=== PATIENT | male | born 1985 | race African-American/Black ===

== ENCOUNTER 2023-06-05 14:03 | Observation (INO) ==
[2023-06-05] MEDS ORDERED: OPTIRAY 320 125ml IV ONE ×2 (14:17→17:06)
--- NOTE | 2023-06-05 14:31 | CT Scan Report ---
CT SCAN OF THE BRAIN WITHOUT IV CONTRAST CLINICAL HISTORY: Neurologic deficit. Stroke like symptoms. COMPARISON STUDY: No priors. TECHNIQUE: Unenhanced axial CT scan of the brain is performed from the vertex to the skull base. A d ose lowering technique was utilized adhering to the principles of ALARA. FINDINGS: Brain parenchyma: The brain parenchyma is normal in appearance. There is no hemorrhage, mass effect, or evidence of acute territorial ischemia by CT criteria. Damon-white matter differentiation is preser colby. No extra-axial fluid collection is seen. Ventricles, sulci, cisterns: Normal in configuration. Intracranial vasculature: The visualized intracranial vasculature at the skull base is normal in appe arance. Calvarium: Unremarkable. Sinuses and mastoids: There is opacification of a left anterior ethmoid sinus. The remaining visualiz ed paranasal sinuses are clear. The mastoid air cells are well pneumatized. Orbits: The bony orbits are grossly intact. IMPRESSION: There is no hemorrhage, mass effect, or evidence of acute territorial ischemia by CT ezekiel roach. ACT 112: Negative or not required by law. Electronically signed by: Jomar Luis M.D. 06/05/2023 2:30 PM
--- NOTE | 2023-06-05 14:34 | Emergency Department Note ---
Impression & Plan Stroke-like symptom, Acute left-sided weakness ED Provider Note NAME: SHEILA [id number] ALEKS AGE: 38 SEX: M : 1985 ARRIVES VIA: Ambulance INFORMANT: Patient, prehospital personnel ED PROVIDER(S): Rubén Foster DO CHIEF COMPLAINT: Strokelike symptoms HPI: The patient is a 38-year-old male who presented to the emergency department for an evaluation of strokelike symptoms. The patient's history was somewhat confusing. It sounds though the patient was found in his cell approximately 1230. He was not awake. He was given Narcan with no response but when the patient did awaken he was having difficulty moving his left arm. He was also having difficulty moving his left leg. He has no previous history similar to this. The patient denies having any headache or chest pain. He denies having any drug use. The patient was made a stroke alert upon arrival to the emergency department. He was not made a stroke alert by the prehospital personnel. ROS: See above HPI for pertinent positives & negatives. A total of 10 systems reviewed and were otherwise negative. PAST MEDICAL HISTORY: See Below PAST SURGICAL HISTORY: See Below FAMILY HISTORY: See Below SOCIAL HISTORY: See Below HOME MEDICATIONS: See Below ALLERGIES: See Below VITALS: See Below PHYSICAL EXAMINATION: GENERAL: The patient is awake and alert. He is somewhat guarded. EYES: The conjunctivae are clear. The pupils are round and reactive. EARS, NOSE, MOUTH AND THROAT: The nose is without any evidence of any deformity. NECK: The neck is nontender and supple. RESPIRATORY: Normal respiratory effort is noted there is no evidence of wheezing rhonchi or rales CARDIOVASCULAR: Regular rate and rhythm noted there no murmurs rubs or gallops normal S1 normal S2. GASTROINTESTINAL: The abdomen is soft. Abdomen is nontender. MUSCULOSKELETAL/EXTREMITIES: There is no evidence of gross deformity full range of motion is noted in the hips and shoulders. SKIN: There is no obvious evidence of any rash. There are no petechiae, pallor or cyanosis noted. NEUROLOGIC: Patient is awake alert and oriented x3. Speech was clear. There is no facial droop. Diminished inside account representative strength is noted in the left upper extremity. The patient is able to hold each leg off the bed but there is asymmetry in the left leg is weaker. MEDICAL DECISION MAKING: The patient is a 38-year-old male who presented to the emergency department from the snf for an evaluation of strokelike symptoms. The patient was found to have left-sided weakness after he was found in his cell. The patient initially was not able to wake up. He was given Narcan because they thought he may have been an overdose. Ultimately the patient was brought to the emergency department. He was not made a stroke alert prior to arrival which did lead to some delay in the patient's overall workup. When the patient was taken to CT he refused CT angiography. This constituted another delay. The patient was evaluated by the telestroke neurologist. After their evaluation they do not feel the patient would be a candidate for TNK given his overall history as well as some ambiguity with the last known well time. I do agree with this assessment. The patient was not sure if he would want TNK as well. I discussed patient's laboratory and radiographic studies with him. I did recommend that he consider inpatient evaluation for further workup which could include MRI of the brain as well as angiography. The patient was agreeable to evaluation. I discussed his condition with the [facility] hospitalist group. Triage Nursing notes reviewed. Prior medical records reviewed Vital Signs: reviewed and remarkable for no significant abnormalities Differential diagnosis: Infection, dehydration, metabolic abnormality, hypo/hyperglycemia, electrolyte disturbance, anemia, hypoxia, cardiac sources, intracerebral event, toxicologic, neurologic, as well as other pathologies. ER treatment provided: See below Diagnostics interpreted by me: ECG: EKG was obtained in the emergency department. My interpretation is normal sinus rhythm at 63 bpm. There is no ectopy. There is no acute ST segment abnormalities noted. No previous tracing was available. Cardiac Monitoring: An order was placed for continuous cardiac monitoring. The monitor shows a rate of 67 bpm with sinus rhythm. Laboratory studies: As stated above and show below. Imaging studies: See below. Radiographic imaging was reviewed by myself Consultation(s): Dr. Gonzalez was notified about the patient. ED COURSE: Procedures: none Critical Care: I have personally spent greater than 35 minutes of critical care time in the direct management of this patient. This includes bedside care, interpretation of diagnostic studies, and testing, discussion with consultants, patient, and family members, and other required patient management activities. This 35 minutes is in excess of all separately billable procedures. Allergies Allergies Allergy/AdvReac Type Severity Reaction Status Date / Time No Known Allergies Allergy Unverified 06/05/23 15:09 Home Meds Home Medications Medication Instructions Recorded Confirmed hydrocortisone 1 % lotion 1 applic topical DAILY 06/05/23 06/05/23 Results & Data (ED) Vital Signs Vital Signs - 24 hr 06/05/23 14:27 06/05/23 14:37 Temperature 36.7 C Temperature Source Oral Pulse Rate 66 67 Pulse Rhythm Regular Respiratory Rate 17 Respiratory Depth Normal Blood Pressure 112/69 Blood Pressure Mean 83 Pulse Oximetry 94 Oxygen Delivery Method Room Air Sepsis Recent Fever Within 48 Hours No Sepsis New/Unexplained Change in Mental Status Yes Sepsis Action Taken by Nursing No Action Required Home Medications Current Medication List: was personally reviewed by me Laboratory Data Attestation: I reviewed the patient's lab results. 06/05/23 15:05 06/05/23 15:05 Lab Results 06/05/23 06/05/23 06/05/23 Range/Units 15:04 15:05 15:11 WBC 3.90 L (4.8-10.8) K/ul RBC 4.65 L (4.70-6.10) M/uL Hgb 13.5 L (14.0-18.0) g/dl POC Hgb 14.3 (14.0-18.0) g/dl Hct 41.8 L (42.0-52.0) % POC Hct 42 (42-52) % MCV 89.9 (80.0-100.0) fL MCH 29.0 (25.0-34.0) pg MCHC 32.3 (32.0-36.0) g/dL RDW Std Deviation 43.8 (36.4-46.3) fL RDW Coeff of Asher 13.3 (11.5-14.5) % Plt Count 255 (130-400) K/uL MPV 9.1 L (9.4-12.4) fL Immature Gran % (Auto) 0.3 % Neut % (Auto) 47.6 % Lymph % (Auto) 45.9 % Barrow % (Auto) 5.4 % Eos % (Auto) 0.5 % Baso % (Auto) 0.3 % Neut # (Auto) 1.86 (1.40-6.50) K/uL Lymph # (Auto) 1.79 (1.20-3.40) K/uL Barrow # (Auto) 0.21 (0.11-0.59) K/uL Eos # (Auto) 0.02 (0.00-0.50) K/uL Baso # (Auto) 0.01 (0.00-0.20) K/uL Immature Gran # (Auto) 0.01 (0.01-0.20) K/uL POC Sodium 142 (135-144) mmol/L POC Potassium 4.2 (3.3-5.0) mmol/L POC Chloride 103 (101-112) mmol/L POC Total CO2 26 (24-31) mmol/L POC Anion Gap 18.0 (16-25) mmol/L POC BUN 4 L (7-18) mg/dl POC Creatinine 1.4 H (0.6-1.3) mg/dl POC Glucose 86 (70-99) mg/dl POC Glucose (other) 92 (70-99) mg/dl POC Ioniz Calcium Andrew 1.17 (1.12-1.32) mmol/l Administered Medications Discontinued Medications Ioversol (Optiray 320 125ml) 115 ml IV ONCE ONE Stop: 06/05/23 14:18 Last Admin: 06/05/23 14:17 Dose: 115 ml Documented By: ARSH Imaging Data Attestation: I personally reviewed and interpreted this imaging study as follows: My Impression: 1 view chest x-ray was obtained in the emergency department. My interpretation is no free air or definite infiltrate, final report below. CT of the brain was obtained in the emergency department. My interpretation is no intracranial hemorrhage or mass effect, final report below Radiologist's Impression: Chest X-Ray 06/05/23 14:11 XR chest 1V portable CLINICAL HISTORY: neuro deficit, acute stroke suspected COMPARISON STUDY: No previous studies for comparison. FINDINGS: Lung volumes are normal. Lungs are clear. There is no pneumothorax or pleural effusion. Cardiac size is normal. Mediastinal contours are normal. There is no evidence for pulmonary edema. IMPRESSION: No acute cardiopulmonary findings. ACT 112: Negative or not required by law. Electronically signed by: Colin Tejada M.D. 06/05/2023 3:[address] 06/05/23 14:11 CT SCAN OF THE BRAIN WITHOUT IV CONTRAST CLINICAL HISTORY: Neurologic deficit. Stroke like symptoms. COMPARISON STUDY: No priors. TECHNIQUE: Unenhanced axial CT scan of the brain is performed from the vertex to the skull base. A dose lowering technique was utilized adhering to the principles of ALARA. FINDINGS: Brain parenchyma: The brain parenchyma is normal in appearance. There is no hemorrhage, mass effect, or evidence of acute territorial ischemia by CT criteria. Damon-white matter differentiation is preserved. No extra-axial fluid collection is seen. Ventricles, sulci, cisterns: Normal in configuration. Intracranial vasculature: The visualized intracranial vasculature at the skull base is normal in appearance. Calvarium: Unremarkable. Sinuses and mastoids: There is opacification of a left anterior ethmoid sinus. The remaining visualized paranasal sinuses are clear. The mastoid air cells are well pneumatized. Orbits: The bony orbits are grossly intact. IMPRESSION: There is no hemorrhage, mass effect, or evidence of acute territorial ischemia by CT criteria. ACT 112: Negative or not required by law. Electronically signed by: Jomar Luis M.D. 06/05/2023 2:30 PM Discharge Plan Visit Data Chief Complaint: Stroke/CVA Symptoms Stated Complaint: STROKE SX, AMS ED Provider: Rubén Foster Discharge Problem: Stroke-like symptom, Acute left-sided weakness Patient Disposition: Being Evaluated by Hospitalist Forms Stand Alone Forms: My [employer] Prescriptions Prescriptions: No Action hydrocortisone 1 % Lotion 1 applic TOPICAL DAILY Referrals Referrals: Wili FINCH [Primary Care Provider] -
--- NOTE | 2023-06-05 14:51 | Electrocardiogram Report ---
Test Reason : Blood Pressure : / mmHG Vent. Rate : 063 BPM Atrial Rate : 063 BPM P-R Int : 164 ms QRS Dur : 078 ms QT Int : 384 ms P-R-T Axes : -03 001 018 degrees QTc Int : 392 ms Normal sinus rhythm Early repolarization Borderline ECG No previous ECGs available Confirmed by Torin Khan ([id number]) on 06/05/2023 2:51:19 PM Referred By: Confirmed By:Torin Khan
--- NOTE | 2023-06-05 15:02 | XRay Report ---
XR chest 1V portable CLINICAL HISTORY: neuro deficit, acute stroke suspected COMPARISON STUDY: No previous studies for comparison. FINDINGS: Lung volumes are normal. Lungs are clear. There is no pneumothorax or pleural effusion. Car diac size is normal. Mediastinal contours are normal. There is no evidence for pulmonary edema. IMPRESSION: No acute cardiopulmonary findings. ACT 112: Negative or not required by law. Electronically signed by: Colin Tejada M.D. 06/05/2023 3:01 PM
[2023-06-05 15:23] LABS: iSTAT Creatinine 1.4 mg/dl (0.6-1.3); iSTAT Hemoglobin 14.3 g/dl (14.0-18.0); iSTAT Ionized Calcium 1.17 mmol/l (1.12-1.32); iSTAT Potassium 4.2 mmol/L (3.3-5.0)
[2023-06-05 15:34] LABS: Basophils # (auto) 0.01 K/uL (0.00-0.20); Basophils % (auto) 0.3 %; Eosinophils # (auto) 0.02 K/uL (0.00-0.50); Eosinophils % (auto) 0.5 %; Hematocrit (blood only) 41.8 % (42.0-52.0); Hemoglobin 13.5 g/dl (14.0-18.0); Immature Granulocytes # (auto) 0.01 K/uL (0.01-0.20); Immature Granulocytes % (auto) 0.3 %; Lymphocytes # (auto) 1.79 K/uL (1.20-3.40); Lymphocytes % (auto) 45.9 %; Mean Corpuscular Hgb Conc 32.3 g/dL (32.0-36.0); Mean Corpuscular Volume 89.9 fL (80.0-100.0); Mean Platelet Volume 9.1 fL (9.4-12.4); Monocytes # (auto) 0.21 K/uL (0.11-0.59); Monocytes % (auto) 5.4 %; Neutrophils # (auto) 1.86 K/uL (1.40-6.50); Neutrophils % (auto) 47.6 %; Platelet Count 255 K/uL (130-400); RDW Coefficient of Variation 13.3 % (11.5-14.5); RDW Standard Deviation 43.8 fL (36.4-46.3); Red Blood Count 4.65 M/uL (4.70-6.10)
[2023-06-05 15:54] LABS: Albumin Globulin Ratio 1.6 (0.9-2); Albumin Level 4.9 gm/dl (3.4-5.0); Bilirubin,Total 0.3 mg/dl (0.2-1.0); Calcium 9.5 mg/dl (8.6-10.3); Creatinine Clr Calc Pharmacy 123.8 ml/min; Est GFR (African American) 111.7 ml/min; Est GFR (Non-African American) 96.4 ml/min; Globulin 3.1 gm/dl (2.5-4.0); Potassium 4.2 mmol/L (3.5-5.1)
[2023-06-05 16:01] LABS: Troponin I High Sensitivity 3.8 pg/ml (0-20)
[2023-06-05 16:07] LABS: Partial Thromboplastin Time 29 Seconds (21-31); Prothrombin Time 10.6 Seconds (9.0-12.0)
[2023-06-05] MEDS ORDERED: LIDO/EPINEPHRINE/SOD BICARB 50 ML VIAL INFIL ONE ×2 (16:22→16:49)
[2023-06-05] MEDS ORDERED: PHARMACIST DISCHARGE MED REC CONSULT PRN (17:37)
--- NOTE | 2023-06-05 17:44 | CT Scan Report ---
HEAD & NECK CTA HISTORY: neuro deficit, acute stroke suspected TECHNIQUE: Multiaxial CT images of the head were performed following the intravenous administration o f contrast to evaluate the major cerebral vessels. Multiaxial CT images of the neck were also perform ed following the intravenous administration of contrast to evaluate the major cervical vessels. 3D/PR P images were also obtained. Sagittal and coronal reformats were reviewed. A dose lowering technique was utilized adhering to the principles of ALARA. COMPARISON: None. FINDINGS: The calvarium and skull base are intact. Small retention cyst within the left anterior ethmoid air ce lls. The orbits are unremarkable. A noncontrast head CT was not performed for this examination. Howev er, there is no definite mass, hematoma, midline shift, acute infarct identified. The major vascular flow-voids at the skull base are well-maintained. The hypoplastic right vertebral artery terminates i nto the right posterior inferior cerebellar artery. This is considered to be a normal variant. Visual ized intracranial internal carotid arteries, distal vertebral arteries, and basilar artery are widely patent. There is no significant stenosis, occlusion, or aneurysm seen within the bilateral ACAs, MCA s, or comparator operator. The aortic arch and proximal great vessels are widely patent. There is no significant stenosis, occ lusion, or dissection identified within the bilateral common carotid, internal carotid, or vertebral arteries. Incidental note is made of a posterior fusion defect at C1. Hypoplastic right vertebral art bertrand again noted. IMPRESSION: 1. No significant stenosis, occlusion, or aneurysm within the [place]. 2. No significant stenosis, occlusion, or dissection identified within the carotid or vertebral arter ies. ACT 112: Negative or not required by law. Electronically signed by: Silvino Wagoner M.D. 06/05/2023 5:42 PM
--- NOTE | 2023-06-05 17:44 | CT Scan Report ---
HEAD & NECK CTA HISTORY: neuro deficit, acute stroke suspected TECHNIQUE: Multiaxial CT images of the head were performed following the intravenous administration o f contrast to evaluate the major cerebral vessels. Multiaxial CT images of the neck were also perform ed following the intravenous administration of contrast to evaluate the major cervical vessels. 3D/KY P images were also obtained. Sagittal and coronal reformats were reviewed. A dose lowering technique was utilized adhering to the principles of ALARA. COMPARISON: None. FINDINGS: The calvarium and skull base are intact. Small retention cyst within the left anterior ethmoid air ce lls. The orbits are unremarkable. A noncontrast head CT was not performed for this examination. Howev er, there is no definite mass, hematoma, midline shift, acute infarct identified. The major vascular flow-voids at the skull base are well-maintained. The hypoplastic right vertebral artery terminates i nto the right posterior inferior cerebellar artery. This is considered to be a normal variant. Visual ized intracranial internal carotid arteries, distal vertebral arteries, and basilar artery are widely patent. There is no significant stenosis, occlusion, or aneurysm seen within the bilateral ACAs, MCA s, or certified performance technologist. The aortic arch and proximal great vessels are widely patent. There is no significant stenosis, occ lusion, or dissection identified within the bilateral common carotid, internal carotid, or vertebral arteries. Incidental note is made of a posterior fusion defect at C1. Hypoplastic right vertebral art bertrand again noted. IMPRESSION: 1. No significant stenosis, occlusion, or aneurysm within the [place]. 2. No significant stenosis, occlusion, or dissection identified within the carotid or vertebral arter ies. ACT 112: Negative or not required by law. Electronically signed by: Silvino Wagoner M.D. 06/05/2023 5:42 PM
[2023-06-05] MEDS ORDERED: ASPIRIN 81 MG CHEW PO STA (19:19)
--- NOTE | 2023-06-05 20:04 | History & Physical Report ---
Date of Service June 05, 2023 Assessment & Plan (1) Stroke-like symptom: Plan: Stroke order set CT angio head/neck - discussed with patient and not willing to have this done MRI brain TTE with bubble study ASA 325mg PO given, ongoing management pending further workup as above Consult neurology (2) Acute left-sided weakness: Plan: Concerning for stroke as above No pain to suggest (3) Alcohol intoxication: Plan: Suspect cause of metabolic encephalopathy (4) Acute metabolic encephalopathy: Plan: Suspect due to alcohol intoxication, less likely stroke related No pneumonia on CXR, UA + drug screen pending Plan VTE Prophylaxis - low risk Diet - heart healthy Disposition - observation to med/tele Admission and Anticipated Discharge Date Admission Date: June 05, 2023 History of Present Illness Chief Complaint: Left upper extremity weakness Primary Care Provider: STEF Wili Vik Rogers is a 38 year old male from [facility] who presents to the ER after being found unresponsive. The patient is unable to give me any history, slow to answer questions and cannot tell me the last thing he remembers. Reportedly found in cell unresponsive. Left upper extremity > right sided weakness after he became more responsive therefore sent to the ER as a stroke alert. Alcohol found in cell. No prior stroke or heart attack known to [facility] - only medical condition is eczema. Allergies Allergy/AdvReac Type Severity Reaction Status Date / Time No Known Allergies Allergy Unverified 06/05/23 15:09 Home Medications Medication Instructions Recorded Confirmed Type hydrocortisone 1 % lotion 1 applic topical DAILY 06/05/23 06/05/23 History Past Med/Surg History Medical History Eczema Review of Systems Review of Systems: All systems reviewed & are unremarkable except as noted in HPI & below Physical Exam Constitutional: WD/WN, vitals as above Eyes: PERRL, conjunctivae normal, anicteric sclerae EOM intact bilaterally ENMT: external ear and nose normal, oropharynx normal Respiratory: normal respiratory effort, lungs clear to auscultation Cardiovascular: RRR, no murmur, no edema Gastrointestinal (Abdomen): normal bowel sounds, soft, nontender, no hepatosplenomegaly Skin: no rashes, warm and dry Neurologic: moves all extremities, + focal motor deficit (decreased left sided baler operator strength, biceps flex 3/5, hip flex 4/5), awake and + confused Speech / Cognition: + abnormal speech (slow); no expressive aphasia and no receptive aphasia Motor/Sensory: + pronator drift (left); no tremor Cranial Nerves: PERRL, EOM intact bilaterally, normal facial strength, tongue midline, able to rotate head bilaterally, able to elevate shoulders bilaterally, no nystagmus and symmetric palate elevation Coordination: + abnormal [id number] test (left sided UE weakness limiting coordination) Psychiatric: Orientation: alert, oriented to person and oriented to place; + not oriented to time Results & Data Results & Data Vital Signs (Past 12 Hours) Vital Signs Temp Pulse Resp BP Pulse Ox O2 Del Method 06/05/23 14:37 67 06/05/23 14:27 36.7 C 66 17 112/69 94 Room Air Laboratory Results Abnormal lab results 06/05/23 06/05/23 06/05/23 Range/Units 15:05 15:11 16:16 WBC 3.90 L (4.8-10.8) K/ul RBC 4.65 L (4.70-6.10) M/uL Hgb 13.5 L (14.0-18.0) g/dl Hct 41.8 L (42.0-52.0) % MPV 9.1 L (9.4-12.4) fL POC BUN 4 L (7-18) mg/dl POC Creatinine 1.4 H (0.6-1.3) mg/dl BUN/Creatinine Ratio 6.0 L (10-20) Ethyl Alcohol mg/dL 164.1 H (<10.0) mg/dl Diagnostic Findings XR chest 1V portable CLINICAL HISTORY: neuro deficit, acute stroke suspected COMPARISON STUDY: No previous studies for comparison. FINDINGS: Lung volumes are normal. Lungs are clear. There is no pneumothorax or pleural effusion. Cardiac size is normal. Mediastinal contours are normal. There is no evidence for pulmonary edema. IMPRESSION: No acute cardiopulmonary findings. CT SCAN OF THE BRAIN WITHOUT IV CONTRAST CLINICAL HISTORY: Neurologic deficit. Stroke like symptoms. COMPARISON STUDY: No priors. TECHNIQUE: Unenhanced axial CT scan of the brain is performed from the vertex to the skull base. A dose lowering technique was utilized adhering to the principles of ALARA. FINDINGS: Brain parenchyma: The brain parenchyma is normal in appearance. There is no hemorrhage, mass effect, or evidence of acute territorial ischemia by CT criteria. Damon-white matter differentiation is preserved. No extra-axial fluid collection is seen. Ventricles, sulci, cisterns: Normal in configuration. Intracranial vasculature: The visualized intracranial vasculature at the skull base is normal in appearance. Calvarium: Unremarkable. Sinuses and mastoids: There is opacification of a left anterior ethmoid sinus. The remaining visualized paranasal sinuses are clear. The mastoid air cells are well pneumatized. Orbits: The bony orbits are grossly intact. IMPRESSION: There is no hemorrhage, mass effect, or evidence of acute territorial ischemia by CT criteria. HEAD & NECK CTA HISTORY: neuro deficit, acute stroke suspected TECHNIQUE: Multiaxial CT images of the head were performed following the intravenous administration of contrast to evaluate the major cerebral vessels. Multiaxial CT images of the neck were also performed following the intravenous administration of contrast to evaluate the major cervical vessels. 3D/MIP images were also obtained. Sagittal and coronal reformats were reviewed. A dose lowering technique was utilized adhering to the principles of ALARA. COMPARISON: None. FINDINGS: The calvarium and skull base are intact. Small retention cyst within the left anterior ethmoid air cells. The orbits are unremarkable. A noncontrast head CT was not performed for this examination. However, there is no definite mass, hematoma, midline shift, acute infarct identified. The major vascular flow-voids at the skull base are well-maintained. The hypoplastic right vertebral artery terminates into the right posterior inferior cerebellar artery. This is considered to be a normal variant. Visualized intracranial internal carotid arteries, distal vertebral arteries, and basilar artery are widely patent. There is no significant stenosis, occlusion, or aneurysm seen within the bilateral ACAs, MCAs, or offal trimmer. The aortic arch and proximal great vessels are widely patent. There is no significant stenosis, occlusion, or dissection identified within the bilateral common carotid, internal carotid, or vertebral arteries. Incidental note is made of a posterior fusion defect at C1. Hypoplastic right vertebral artery again noted. IMPRESSION: 1. No significant stenosis, occlusion, or aneurysm within the [facility]. 2. No significant stenosis, occlusion, or dissection identified within the carotid or vertebral arteries. Medications Administered ER Medications Given: None ECG Rate (beats per minute): 63 Rhythm: normal sinus Findings: no acute ischemic change Comparison ECG Date: no prior available Code Status & VTE Plan Code Status Full VTE Prophylaxis Plan VTE Prophylaxis will be ordered: No PG Care Time/CCT Total # of Minutes Spent Total Time Spent with Patient: Total time spent is greater than 50% in coordination of care (as documented) at patient's floor/unit and/or counseling patient: Coding Level of Care Code 30312 INT INP/OBS CARE 3/75MIN Diagnoses Stroke-like symptom R29.90 Acute left-sided weakness R53.1 Alcohol intoxication F10.929 Acute metabolic encephalopathy G93.41
[2023-06-05 21:51] LABS: Appearance Urine Clear (Clear); Bilirubin Urine Negative (Negative); Blood Urine Negative (Negative); Color Urine Yellow; Glucose Urine UA Negative (Negative); Ketones Urine Negative (Negative); Leukocyte Esterase Urine Negative (Negative); Nitrite Urine Negative (Negative); Protein Urine Negative (Negative); Specific Gravity Urine 1.043 (1.000-1.030); Urobilinogen Urine Negative (Negative)
[2023-06-05 22:58] LABS: Amphetamines+Metham, Urine Neg (Neg); Barbiturates, Urine Neg (Neg); Benzodiazepine, Urine Neg (Neg); Cocaine, Urine Neg (Neg); MDMA (Ecstacy), Urine Neg (Neg); Marijuana, Urine Neg (Neg); Methadone, Urine Neg (Neg); Opiate, Urine Neg (Neg); Phencyclidine, Urine Neg (Neg)
[2023-06-06 05:15] LABS: Basophils # (auto) 0.02 K/uL (0.00-0.20); Basophils % (auto) 0.5 %; Eosinophils % (auto) 2.3 %; Hematocrit (blood only) 38.3 % (42.0-52.0); Hemoglobin 12.3 g/dl (14.0-18.0); Immature Granulocytes # (auto) 0.01 K/uL (0.01-0.20); Immature Granulocytes % (auto) 0.2 %; Lymphocytes # (auto) 2.07 K/uL (1.20-3.40); Lymphocytes % (auto) 46.7 %; Mean Corpuscular Hemoglobin 28.9 pg (25.0-34.0); Mean Corpuscular Hgb Conc 32.1 g/dL (32.0-36.0); Mean Corpuscular Volume 89.9 fL (80.0-100.0); Monocytes # (auto) 0.28 K/uL (0.11-0.59); Monocytes % (auto) 6.3 %; Neutrophils # (auto) 1.95 K/uL (1.40-6.50); Platelet Count 244 K/uL (130-400); RDW Coefficient of Variation 13.5 % (11.5-14.5); RDW Standard Deviation 44.5 fL (36.4-46.3); Red Blood Count 4.26 M/uL (4.70-6.10); White Blood Count 4.43 K/ul (4.8-10.8)
[2023-06-06 05:33] LABS: BUN Creatinine Ratio 9.6 (10-20); Chol HDL Ratio 2.1 (0-5); Creatinine Clr Calc Pharmacy 131.1 ml/min; Est GFR (African American) 120.4 ml/min; Est GFR (Non-African American) 103.9 ml/min; Potassium 3.8 mmol/L (3.5-5.1)
[2023-06-06] MEDS ORDERED: ACETAMINOPHEN 325 MG TAB PO PRN (06:20)
[2023-06-06 07:04] LABS: Estimated Average Glucose 123 mg/dl; Hemoglobin A1C 5.9 % (4.5-5.6)
--- NOTE | 2023-06-06 09:20 | Neurology Consultation ---
Date of Consultation June 06, 2023 Assessment & Plan (1) Alcohol intoxication: History of Present Illness Attending Physician: Nicholas Singleton MD History of Present Illness HPI: pt from shelter, found down on his cell. ?left arm weakness in ED. pt found to have alcohol intoxication. CTA head/neck and CT head negative. this morning feeling back to normal .no weakness. admission HPI: The patient is a 38-year-old male who presented to the emergency department from the shelter for an evaluation of strokelike symptoms. The patient was found to have left-sided weakness after he was found in his cell. The patient initially was not able to wake up. He was given Narcan because they thought he may have been an overdose. Ultimately the patient was brought to the emergency department. He was not made a stroke alert prior to arrival which did lead to some delay in the patient's overall workup. When the patient was taken to CT he refused CT angiography. This constituted another delay. The patient was evaluated by the telestroke neurologist. After their evaluation they do not feel the patient would be a candidate for TNK given his overall history as well as some ambiguity with the last known well time. I do agree with this assessment. The patient was not sure if he would want TNK as well. I discussed patient's laboratory and radiographic studies with him. I did recommend that he consider inpatient evaluation for further workup which could include MRI of the brain as well as angiography. The patient was agreeable to evaluation. I discussed his condition with the [facility] hospitalist group. Triage Nursing notes reviewed. Prior medical records reviewed Allergies Allergy/AdvReac Type Severity Reaction Status Date / Time No Known Allergies Allergy Unverified 06/05/23 15:09 Home Medications Medication Instructions Recorded Confirmed Type hydrocortisone 1 % lotion 1 applic topical DAILY 06/05/23 06/05/23 History Patient History Medical History Eczema Social History Hx Alcohol Use: Yes (pos alcohol level) Hx Substance Use: No Preferred Language: Yakut Communication Ability: Effective Outbound Supervisor Required: No Beliefs That Will Affect Care: None Current Living Situation: Other Current Living Situation Comment: Group Home Other Information That Helps Us Care for You: No Feels Safe at Home: Yes Assistive Devices: None Exam (Neuro) Physical Exam: HEENT: normocephalic Neuro: Mental: AOx4, fluent speech, normal comprehension, no apraxia, no L/R confusion, no neglect CN: PERRL, Full EOM, symmetric face, intact sensation t/o face, midline T/U/P, 5/5 SCM/traps. Motor: No abnormal movements, normal tone and bulk, 5/5 t/o bilaterally Sens: intact to touch b/l grossly Coord: intact Impression: 38 yo male who was found down in long-term with alcohol intoxication. transient ? left arm weakness that is now resolved. overall picture not consistent with stroke. pt likely had alcohol intoxication symptom. Recommendations: no further stroke work up needed. no need for ASA at this point. no need for MRI either. call again if new question. Chart reviewed I have spent more than 50% educating patient about potential diagnosis and neurological evaluation and coordinating care with patient's treatment team. Total time spent (including chart review and coordination of care): 60 min (this includes chart review). Results & Data Vital Signs (Past 12 Hours) Vital Signs Temp Pulse Pulse Resp BP Pulse Ox O2 Del Method 06/06/23 08:02 36.7 C 64 16 109/70 98 Room Air 06/06/23 07:48 57 L 06/06/23 03:29 36.8 C 61 18 102/63 95 Room Air 06/06/23 00:26 36.9 C 62 18 112/67 94 Room Air 06/05/23 22:00 52 L PG Care Time/CCT Total # of Minutes Spent Total Time Spent with Patient: Total time spent is greater than 50% in coordination of care (as documented) at patient's floor/unit and/or counseling patient: Coding Level of Care Code 20732 IN/OBS CONSULT LVL 4,60M Diagnoses Alcoholic intoxication without complication F10.920 Complication of substance-induced condition: uncomplicated (1) Alcohol intoxication Complication of substance-induced condition: uncomplicated Qualified Code(s): F10.920 - Alcohol use, unspecified with intoxication, uncomplicated
--- NOTE | 2023-06-06 12:37 | Discharge Summary ---
Date of Service June 06, 2023 Admission HPI Per Admitting Provider Vik Rogers is a 38 year old male from [facility] who presents to the ER after being found unresponsive. The patient is unable to give me any history, slow to answer questions and cannot tell me the last thing he remembers. Reportedly found in cell unresponsive. Left upper extremity > right sided weakness after he became more responsive therefore sent to the ER as a stroke alert. Alcohol found in cell. No prior stroke or heart attack known to halfway - only medical condition is eczema. Principal Diagnosis Alcohol intoxication, transient left hemiparesis without CVA Discharge Exam General-alert and oriented x3, no fevers, no chills HEENT-head atraumatic and normocephalic, pupils equal and reactive to light, extraocular muscles intact Neck-no lymphadenopathy or thyromegaly, trachea midline Chest-clear to auscultation percussion. No rales, wheezing or rhonchi Cardiac-regular rate and rhythm, normal S1 and S2 Abdomen-normal bowel sounds, nontender, no hepatosplenomegaly Extremities-no cyanosis, clubbing, or edema Neuro-cranial nerves II through XII intact, motor and sensory function within normal limits, strength symmetrical, no focal deficits Psych-normal affect, normal mood Discharge Data Allergies Allergy/AdvReac Type Severity Reaction Status Date / Time No Known Allergies Allergy Unverified 06/05/23 15:09 Consultations 06/05/23 15:23 ED Decision to Admit Stat 06/05/23 17:37 Consult Neurology Routine Ordered Studies 06/05/23 14:11 CT angio head w con Stat CT angio neck with con Stat CT head/brain wo con Stat Hospital Course (1) Stroke-like symptom: Left hemiparesis has resolved. Neurology consultation completed. No indication for brain MRI scan. Admission head CT scan negative. Head and neck CTA negative. (2) Acute left-sided weakness: Resolved. Probably related to alcohol intoxication on admission (3) Alcohol intoxication: Supportive care. Now resolved (4) Acute metabolic encephalopathy: Due to alcohol intoxication on admission. Resolved Plan Return to [facility] today, June 06. [facility] will [facility] per [facility] protocol Total Time Total Time Spent Total Time Spent (In Minutes): 45 minutes Discharge Plan Discharge Items Patient Disposition: [facility] Reason For Visit: STROKE-LIKE SYMPTOMS Discharge Diagnosis: Alcohol intoxication, transient left hemiparesis Activity: Resume your previous activity Non-emergency contact: Primary Care Provider Call non-emergency contact if: your symptoms worsen Follow-up/Referrals: Wili FINCH [Primary Care Provider] - Diet: Regular Addtl Attending Provider Instructions: No new medication Pending Studies at Discharge: No Skilled Items Patient informed of condition?: Yes DNR: No Discharge Level of Care: Other Communicable Disease: No Discharge Prognosis: Stable Lines: None Urinary Catheter: No Medications and DC Order Prescriptions: Continued hydrocortisone 1 % Lotion 1 applic TOPICAL DAILY Admission Data Admit Date/Time: 06/05/23 16:19 Attending Provider: Nicholas Singleton Admit Provider: Nelson Gonzalez Primary Care Provider: Wili FINCH Other Providers: Nelson Gonzalez; Dash Arias Coding Level of Care Code 93647 INP/OBS DISCH >30 MIN Diagnoses Stroke-like symptom R29.90 Acute left-sided weakness R53.1 Alcoholic intoxication without complication F10.920 Complication of substance-induced condition: uncomplicated Acute metabolic encephalopathy G93.41
[2023-06-06] MEDS ORDERED: STROKE PATIENT DISCHARGE STA (12:38)
--- NOTE | 2023-06-06 15:05 | XCELERA ---
[id number] \\[id number]
== END 2023-06-06 13:29 ==
LOC: ED 14:03 → EDINP 14:03 → SUATTDRO 16:19 → 2W 16:39